=== PATIENT | female | born 1975 | race African-American/Black ===

== ENCOUNTER 2024-02-21 08:54 | Emergency (ER) | payer MEDICAID ==
[~2024-02-21] VITALS: Ht 152.4 cm; Wt 90.0 kg
[2024-02-21 09:04] VITALS: O2SAT 97
[2024-02-21] MEDS: KETOROLAC 30MG/ML VIAL IM ONE (10:02)
[2024-02-21] MEDS ORDERED: DICL100G58 TP (11:17)
[2024-02-21] MEDS ORDERED: IBUP-2029 MT (11:17)
[2024-02-21 11:30] VITALS: BP 140/74; PULSE 97; RESP 18; TEMP 36.78072; O2SAT 97
== END 2024-02-21 12:01 | disposition home or self-care (01) ==
LOC: ER 08:54
DX: M25.521 Pain in right elbow (principal)
CPT/HCPCS: 81025; 73080; 96372; 99283; J1885; Z7610